=== PATIENT | female | born 1960 | race Caucasian/White ===

== ENCOUNTER → 2017-06-01 | Outpatient (CLI) | payer OTHER | LOC: BMCIMAGING 16:53 | PROVIDERS: ATTEND Emergency Medicine | DX: M25.532 Pain in left wrist (principal) ==

== ENCOUNTER → 2018-12-07 | Outpatient (CLI) | payer OTHER | LOC: CLAB 11:28 | PROVIDERS: ATTEND Family Medicine | DX: M20.11 Hallux valgus (acquired), right foot (principal); M21.611 Bunion of right foot; M77.31 Calcaneal spur, right foot | CPT/HCPCS: 73630-PO ==